=== PATIENT | male | born 2000 | race Caucasian/White ===

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

== ENCOUNTER 2020-08-18 10:35 | Outpatient (CLI) | payer OTHER ==
--- NOTE | 2020-08-18 14:47 | MRI ---
MRI OF THE LEFT SHOULDER WITHOUT CONTRAST: 08/18/20 INDICATION: History of left shoulder injury. After a year, still having shoulder pain. COMPARISON: Prior MR of the left shoulder dated 12/15/09. FINDINGS: There is acute on chronic Hill-Sachs deformity of the posterior superior humeral head. There is now a n osseous Bankart lesion involving a long segment of the glenoid labral tear seen on the prior examin ation. The displaced bone fragment measures approximately 0.6 x 1.8 cm. The long segment tear extendi ng from approximately the 6 o'clock position through the posterior superior glenoid labrum persists. Glenohumeral articular surface outside of the osseous injury is stable appearing. There is a tear ext ension into the biceps anchor complex. Biceps tendon remains located. The rotator cuff remains intact . There is mild AC joint hypertrophy. No muscular atrophy is evident. No os acromiale is evident. The re is a type II acromion. IMPRESSION: Interval development of an osseous Bankart lesion involving the anterior inferior glenoid with persis tence of the long segment glenoid labral tear extending from approximately the 6 o'clock through the 10 o'clock position of the glenoid labrum. There is stable tear extension into the biceps anchor comp sindhu. There is an acute on chronic Hill-Sachs deformity. POS: HELENA
== END 2020-08-18 10:36 | disposition home or self-care (01) ==
LOC: SCSMRI 10:35
PROVIDERS: ATTEND Orthopaedic Surgery
DX: S43.005D Unspecified dislocation of left shoulder joint, subsequent encounter (principal); S43.402A Unspecified sprain of left shoulder joint, initial encounter

== ENCOUNTER 2020-09-07 08:09 | Outpatient (CLI) | payer OTHER ==
[2020-09-07 15:57] LABS: Hemoglobin 15.8 g/dL (14.0-18.0); Mean Corpuscular HGB CONC 34.3 g/dL (32.0-36.0); Mean Corpuscular Hemoglobin 32.1 pg (25.0-35.0); Mean Corpuscular Volume 93.4 fL (78.0-98.0); Mean Platelet Volume 7.9 fL (7.4-10.4); Platelet Count 266 thou/uL (130-400); RBC Distribution Width 11.3 % (11.5-14.5); Red Blood Cell (RBC) Count 4.91 mill/uL (4.00-5.20); White Blood Cell (WBC) Count 8.2 thou/uL (4.8-10.8)
[2020-09-08 10:31] LABS: SARS-CoV-2 MS2 Positive; SARS-CoV-2 N Gene Negative; SARS-CoV-2 S Gene Negative; SARS-CoV-2 by NAA Not Detected (NotDetected); SARS-CoV-2 orf1ab Negative
== END 2020-09-07 08:10 | disposition home or self-care (01) ==
LOC: LABBT 08:09
PROVIDERS: ATTEND Orthopaedic Surgery
DX: Z01.812 Encounter for preprocedural laboratory examination (principal); S43.005A Unspecified dislocation of left shoulder joint, initial encounter; Z20.828 Contact with and (suspected) exposure to other viral communicable diseases
CPT/HCPCS: 85027; 87635; U0003

== ENCOUNTER 2020-09-10 07:56 | Day surgery (SDC) | payer OTHER ==
[2020-09-09 11:59] VITALS: BMI 23.6
[2020-09-10] MEDS ORDERED: Vancomycin 1 GM/200 ML BAG ONE (08:40)
[2020-09-10] MEDS ORDERED: Midazolam HCl 2 mg/2 ml Vial ONE (08:50)
[2020-09-10] MEDS ORDERED: Fentanyl 100 MCG/2 ML VIAL ONE ×2 (08:50→10:19)
[2020-09-10] MEDS ORDERED: Fentanyl 100 MCG/2 ML VIAL SLOW IVP PRN (09:03)
[2020-09-10] MEDS ORDERED: Ketorolac Tromethamine 30 MG/ML VIAL IVP PRN (09:15)
[2020-09-10] MEDS ORDERED: Ropivacaine 0.2% 550 ML 550 ML NERVE BLCK SCH (09:15)
[2020-09-10] MEDS ORDERED: HYDROcodone/Acetaminophen 10/325 mg Tablet PO PRN ×2 (09:15)
[2020-09-10] MEDS ORDERED: Promethazine HCl 25 MG/ML VIAL IM PRN (09:15)
[2020-09-10] MEDS ORDERED: Ondansetron PF 4 MG/2 ML Vial IVP PRN (09:15)
[2020-09-10] MEDS ORDERED: traMADol HCl 50 MG TAB PO PRN ×2 (09:15)
[2020-09-10] MEDS ORDERED: Zolpidem Tartrate 5 MG TAB PO PRN (09:15)
[2020-09-10] MEDS ORDERED: Glycopyrrolate 0.2 MG/ML 5 ML SYRINGE ONE (09:48)
[2020-09-10] MEDS ORDERED: Ketorolac Tromethamine 30 MG/ML VIAL ONE (09:48)
[2020-09-10] MEDS ORDERED: Lidocaine 1% PF 5 ML VIAL ONE (09:48)
[2020-09-10] MEDS ORDERED: Ropivacaine 0.5% HCl/PF (150 MG/30 ML VIAL) ONE (09:48)
[2020-09-10] MEDS ORDERED: Ropivacaine 0.2% HCl/PF (40 MG/20 ML VIAL) ONE (09:48)
[2020-09-10] MEDS ORDERED: PROPOFOL 200 MG/20 ML VIAL ONE (09:48)
[2020-09-10] MEDS ORDERED: Rocuronium Bromide 10 MG/ML (10ML VIAL) ONE (09:48)
[2020-09-10] MEDS ORDERED: Ondansetron PF 4 MG/2 ML Vial ONE (09:48)
[2020-09-10] MEDS ORDERED: Dexamethasone 20 MG/5 ML VIAL ONE (09:48)
--- NOTE | 2020-09-13 06:47 | OP ---
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 PROCEDURE PERFORMED: Left open Bankart repair. DROP WIRE ALIGNER: Pierce Martinez MD The ophthalmic medical assistant surgeon was present throughout the procedure to include the approach, fixation of the Bankart as well as closure of the multiple layers of the shoulder. BLOOD LOSS: About 30 mL. COMPLICATIONS: None. ANESTHESIA: He did have a general anesthetic with a preoperative block. IMPLANTS: We used 3 BioComposite SutureTak anchors with associated sutures. DISPOSITION: He did go to recovery room in stable condition. 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 At this time, he is presenting for stabilization of the shoulder. DESCRIPTION OF PROCEDURE: After all appropriate consent forms were explained and signed by Emmanuel, he was taken back to the operating room and at this time, he was given a general anesthetic. Once the anesthesia was appropriate, he was placed in a modified beach chair position with all bony prominences well padded. A peterson bag was inflated to hold this in position. The left shoulder and upper extremity were then prepped and draped in standard surgical fashion. Once this was done, a 10 blade was used to make an incision in the skin. Bovie was used to coagulate any brisk venous bleeding. Fascia was then opened up to expose the cephalic vein and this was taken laterally with our deltoid. Split between the pec and the deltoid was widened and a self-retaining retractor was placed. The conjoined tendon fascia was opened up. Finger was used to sweep the conjoined tendon off the underlying subscapularis and self-retaining retractor was placed underneath this. At this time, the rotator interval was found superiorly. Biceps tendon was noted in its position and approximately 1.5 cm medial to this, the Bovie was used to take down the overlying subscapularis from the underlying capsule. Once the interval had been developed using the Bovie as well as the periosteal, we placed multiple Ethibond sutures into the medial leaflet for later repair. The sutures were placed behind the self-retaining retractor at this time. A 15 blade was then used to make a capsulotomy to enter into the glenohumeral joint. Multiple Ethibond sutures were placed into the medial capsule for later repair. Once our capsulotomy had been performed, we placed a Fukuda retractor to pull the humeral head out of the way after first removing the self-retaining retractor. Bankart retractor was placed along the neck of the glenoid given us access to the Bankart lesion. There was a small piece of bone. This was removed with a rongeur. There was some fissuring and disruption of the edge of the cartilage. The loose cartilage was also removed at this time. We thoroughly irrigated and dried. At this time, we drilled and placed three BioComposite SutureTak anchors in the glenoid. Starting inferiorly we used a SutureLasso to go through the capsule, hitting bone and proceeding into the glenohumeral joint. We then used the wire to pull the sutures from the joint out anteriorly in mattress fashion. Once the sutures had been passed, capsule was pulled laterally, sutures were all tightened down, performing our anatomic Bankart repair. We then felt inside our pouch, making sure that we got rid of any excess capsule and Fukuda retractor was removed. We then thoroughly irrigated and dried the wound. The previously placed multiple Ethibond sutures were then used to repair our capsulotomy, performing a small capsular shift from medial to lateral. Once these had all been tied, we then repaired anatomically our subscapularis. We then ran a large Vicryl over top of our Ethibond repair We then thoroughly irrigated and dried our wound. We then allowed our deltopectoral interval to close upon itself. We did place a couple of Vicryl sutures to loosely close the deltopectoral interval, followed by 2-0 Vicryl and surgical noé on the skin. A bulky sterile dressing was applied. Then, the patient's arm was placed into a sling. He was then awakened. He was taken to recovery room in stable condition. All counts were correct at the end of the case and he did receive preoperative IV antibiotics. Job ID: [id number] [facility]
== END 2020-09-10 15:26 | disposition home or self-care (01) ==
LOC: SDC 07:56
PROVIDERS: ATTEND Orthopaedic Surgery
DX: S43.005A Unspecified dislocation of left shoulder joint, initial encounter (principal); F17.290 Nicotine dependence, other tobacco product, uncomplicated; J45.909 Unspecified asthma, uncomplicated; G43.909 Migraine, unspecified, not intractable, without status migrainosus; X58.XXXA Exposure to other specified factors, initial encounter; Y93.64 Activity, baseball
CPT/HCPCS: A4306; C1713; J0690; J1100; J1885; J2250; J2405; J2704; J2795; J3010; J3370